=== PATIENT | female | born 1950 | race Caucasian/White ===

== ENCOUNTER → 2016-10-12 | Outpatient (CLI) | payer OTHER ==
--- NOTE | 2016-10-13 09:55 | DEXA ---
AP SPINE L1 - L4 1.046 -1.2 0.9 LT FEMUR TOTAL 0.671 -2.7 -1.1 RT FEMUR TOTAL 0.436 -4.5 -3.0 TOTAL BODY TOTAL OTHER DUAL FEMUR FRAX* ASSESSMENT Risk factors: Tobacco use. 10 year probability of fracture Major osteoporotic fracture 13.7 % Hip fracture 5.3 % COMMENTS: There is low bone density of the spine. There is low bone density of the right hip. There is osteoporosis of the left hip. FOLLOW-UP: Recommendation for the next bone density exam: 2 years. SHARONA
== END ==
LOC: M WHC 10:13
PROVIDERS: ATTEND Physician Assistant
DX: Z78.0 Asymptomatic menopausal state (principal)